=== PATIENT | female | born 1960 | race Two or more races ===

== ENCOUNTER 2023-05-15 12:55 | Outpatient (CLI) | payer OTHER ==
[~2023-05-15 12:55] MED LIST: CYMBALTA60 MG PO
== END 2023-05-15 13:10 | disposition home or self-care (01) ==
LOC: MRI 12:55
PROVIDERS: ATTEND Orthopaedic Surgery
DX: S83.201A Bucket-handle tear of unspecified meniscus, current injury, left knee, initial encounter (principal); M54.59 Other low back pain; M25.552 Pain in left hip; M76.02 Gluteal tendinitis, left hip; M47.816 Spondylosis without myelopathy or radiculopathy, lumbar region; M25.561 Pain in right knee; M25.562 Pain in left knee
CPT/HCPCS: 73721